=== PATIENT | female | born 1950 | race Caucasian/White ===

== ENCOUNTER 2019-01-23 11:06 | Inpatient (IN) | payer MEDICARE, BC ==
[2019-01-23 12:23] LABS: #Monocytes 0.3 thou/uL (0.11-0.59); %Basophils 0.8 % (0.0-1.0); %Eosinophils 0.3 % (0.0-10.0); %Lymphocytes 23.4 % (21.0-51.0); %Monocytes 7.5 % (0.0-10.0); %Neutrophils 67.9 % (42.0-75.0); Hemoglobin 12.9 g/dL (12.0-16.0); Mean Corpuscular HGB CONC 33.7 g/dL (32.0-36.0); Mean Corpuscular Hemoglobin 29.9 pg (27.0-31.0); Mean Corpuscular Volume 88.8 fL (78.0-98.0); Mean Platelet Volume 6.1 fL (7.4-10.4); Platelet Count 270 thou/uL (130-400); RBC Distribution Width 11.7 % (11.5-14.5); White Blood Cell (WBC) Count 4.4 thou/uL (4.8-10.8)
[2019-01-23 12:44] LABS: ALT (SGPT) Less than 6 U/L (8-55); AST (SGOT) 12 U/L (5-34); Albumin 4.4 g/dL (3.4-4.8); Alkaline Phosphatase 47 U/L (40-150); Anion Gap 12 mmol/L (10-20); BUN (Urea Nitrogen) 6 mg/dL (9.8-20.1); Bilirubin, Total 1.1 mg/dL (0.2-1.2); Calc. Creatinine Clearance 0 mL/min (70-130); Calcium 9.4 mg/dL (7.8-10.44); Carbon Dioxide 31 mmol/L (23-31); Chloride 103 mmol/L (98-107); Estimated GFR-MDRD 81; Globulin 2.2 g/dL (2.4-3.5); Glucose 108 mg/dL (80-115); Lipase 12 U/L (8-78); Protein, Total 6.6 g/dL (6.0-8.3); Sodium 144 mmol/L (136-145)
[2019-01-23 12:47] LABS: Potassium 2.3 mmol/L (3.5-5.1)
[2019-01-23] MEDS ORDERED: Potassium Chloride 20 MEQ TAB ONE (13:06)
[2019-01-23 13:32] LABS: Bilirubin Negative (Negative); Blood, Urine Negative (Negative); Clarity Slightly Cloudy (Clear); Glucose, Urine (Dipstick) Negative (Negative); Leukocyte Small (Negative); Nitrite Negative (Negative); Protein, Urine (Dipstick) Negative (Neg-Trace); Urobilinogen 0.2 mg/dL (0.2-1.0)
[2019-01-23 13:33] LABS: RBC/HPF 0-3 HPF (0-3); Squamous Epithelial 0-3 HPF (0-3); WBC/HPF 0-3 HPF (0-3)
[2019-01-23 13:34] LABS: Bacteria/HPF 1+ HPF (None Seen)
--- NOTE | 2019-01-23 14:08 | CT ---
ABDOMEN CT WITH CONTRAST PELVIC CT WITH CONTRAST: Date: 01/23/19 HISTORY: Abdominal pain. 3 weeks of diarrhea. Parkinson's disease. COMPARISON: 11/25/15. FINDINGS: ABDOMEN CT: The previously noted nodularity in the left and right lung base is less evident. There are linear opa cities in both lung bases suggesting subsegmental atelectasis or scar formation. Heart size is within normal limits. No significant pericardial fluid. Visualized aorta has a normal c aliber. Patent portal vein. Sludge or small stones in the gallbladder fundus. No CT evidence of cholecystitis. Liver, spleen, cordero creas, and adrenal glands have appropriate attenuation. Redemonstration of a 1.0 cm hypodensity in th e spleen with a central enhancing focus likely representing a small hemangioma. No gastrohepatic, retrocrural, or periportal lymphadenopathy. No mesenteric mass, lymphadenopathy, free air, or free fluid. Symmetric enhancement of the kidneys. Bilaterally, no obstructive uropathy. Subcentimeter hypodensity in the left renal cortex, unchanged from the previous examination, may represent a small cyst. Bilat erally, no obstructive uropathy. Limited evaluation of the alimentary canal due to lack of oral contrast. Multiple fluid-filled small bowel loops are identified with thickened mucosa. Enteritis must be considered. The proximal and mid small bowel loops are somewhat prominent. Distal small bowel loops are decompressed. There is fecaliz ation of distal small bowel loops, nonspecific. Ileocecal junction is unremarkable. Fluid attenuation is noted in the visualized colon. Appendix is difficult to appreciate. There is mucosal thickening i nvolving the sigmoid colon and rectum. CT PELVIS: Distended urinary bladder. No pelvic mass, lymphadenopathy, free air, or free fluid. No lytic or blastic lesions in the osseous structures. IMPRESSION: 1. Fluid attenuation with mucosal prominence involving multiple proximal and mid small bowel loops. Correlate for enteritis. There is also fluid attenuation in the right hemicolon, along with mucosal t hickening involving the sigmoid colon and rectum. Correlate for colitis/proctitis. 2. CT evidence of sludge and small stones in the gallbladder. No evidence of cholecystitis. 3. Distended urinary bladder. Encourage spontaneous voiding. POS: [facility]
[2019-01-23] MEDS ORDERED: Ondansetron ODT 4 MG TAB SL PRN (16:23)
[2019-01-23] MEDS ORDERED: Ondansetron PF 4 MG/2 ML Vial IVP PRN ×2 (16:23→17:33)
[2019-01-23 17:08] VITALS: BMI 26.2
[2019-01-23] MEDS ORDERED: Acetaminophen 650 MG Suppository PR PRN (17:33)
[2019-01-23] MEDS ORDERED: Senokot S 8.6-50 MG TAB PO PRN (17:33)
[2019-01-23] MEDS ORDERED: Acetaminophen 325 MG TAB PO PRN (17:33)
[2019-01-23] MEDS ORDERED: Ondansetron ODT 4 MG TAB PO PRN (17:33)
[2019-01-23] MEDS ORDERED: Guaifenesin DM 100-10/5 ML UDCUP PO PRN (17:45)
[2019-01-23] MEDS: Azelastine 137 MCG/Spray 30 ML NS SCH (21:05)
[2019-01-23] MEDS: Famotidine 20 MG TAB PO SCH (21:06)
[2019-01-23 22:32] LABS: Anion Gap 10 mmol/L (10-20); BUN (Urea Nitrogen) 7 mg/dL (9.8-20.1); Calc. Creatinine Clearance 70 mL/min (70-130); Calcium 9.1 mg/dL (7.8-10.44); Carbon Dioxide 31 mmol/L (23-31); Chloride 104 mmol/L (98-107); Estimated GFR-MDRD 74; Glucose 147 mg/dL (80-115); Sodium 142 mmol/L (136-145)
[2019-01-23 22:34] LABS: Potassium 2.7 mmol/L (3.5-5.1)
[2019-01-23] MEDS ORDERED: Potassium Chloride 20 MEQ TAB PO SCH (23:30)
--- NOTE | 2019-01-24 01:26 | CON ---
DATE OF CONSULTATION: REASON FOR CONSULTATION: Diarrhea. HISTORY OF PRESENT ILLNESS: Ms. Rice states she was sent to the emergency room by her primary physician, Dr. Pinto as she had hypokalemia and she has been having diarrhea for 3 weeks, which they have not been able to elucidate a cause. Reportedly, she was having normal bowel movements before that, has not had any issues with diarrhea typically, but about 3 weeks ago, she had abrupt onset of diarrhea, which she describes as being watery and up to 7-10 times per day, predominantly in the evening. It does not seem to be related to eating. There has been no antecedent antibiotics. She did start amantadine for about 3 days before that for her Parkinson's and she stopped her Rytary, but then restarted it and then went back off the amantadine. The diarrhea did not get better. She has tried Imodium and Pepto-Bismol at home. She had stool studies done for routine stool culture, it showed many normal konstantin with no Salmonella, Shigella, or E coli. She had a positive lactoferrin, a negative Campylobacter, and a negative shiga toxin. She did have positive lactoferrin and negative C difficile. She denies any recent sick contacts. She denies any travel. She denies having any new pets ill pets at home. The patient reports that she has gotten pretty weak and she was getting nauseated and was not really able to eat or drink. She denies any overt abdominal pain or cramping. She denies any blood in the stool or tenesmus. REVIEW OF SYSTEMS: CONSTITUTIONAL: Fatigue. No fever. Positive weakness. No chills. No rashes, myalgias, arthralgias, hematemesis, melena, or hematochezia. No cough or shortness of breath. CARDIOVASCULAR: Negative. RESPIRATORY: Negative. : Negative for dysuria, frequency, or urgency. MUSCULOSKELETAL: Negative for muscle spasms. NEUROLOGIC: Negative for headaches or seizures. Positive for Parkinson's. PAST MEDICAL HISTORY: Parkinson disease. PAST SURGICAL HISTORY: Hernia repair, EGD and colonoscopy by Dr. Chacorta Hodgson about 4 years ago which she reports were normal. SOCIAL HISTORY: Negative for alcohol, drugs, tobacco. ALLERGIES: SULFA. MEDICATIONS: At home; 1. Amantadine, she is off this now. 2. Carbidopa/levodopa. 3. Systane. 4. Metoprolol. 5. Clonazepam. 6. Estrace. 7. Sertraline. Present medications here; 1. Tylenol. 2. Azelastine. 3. Lovenox. 4. Pepcid. 5. Glucophage 500 b.i.d. 6. Lopressor. 7. Zofran. 8. Crestor. 9. Senokot p.r.n. 10. Sertraline. PHYSICAL EXAMINATION: GENERAL: The patient is resting comfortably in bed. She is alert and oriented to person, place, and time. VITAL SIGNS: Temperature is 98, pulse 83, blood pressure 121/98. LUNGS: Clear. ABDOMEN: Soft and nontender. There is no rebound or guarding. There is no palpable hepatosplenomegaly. There is no borborygmi or increased bowel sounds. EXTREMITIES: Reveal no clubbing, cyanosis, or edema. SKIN: There is no skin tenting. There is no evidence of rashes. HEENT: Oropharynx is without lesions. LABORATORY STUDIES: White count 4.4, hemoglobin 12.9, platelet count 270. BUN and creatinine 6 and 0.7. Liver function tests are normal. Albumin is 4.4. TSH was normal on 12/26. B12 is 329. Vitamin D is 26. Lipase 19. ASSESSMENT: Three weeks of diarrhea with positive fecal lactoferrin, negative cultures, negative clostridium difficile. With the length of this, this is infection, it is going to be parasitic. Giardia will be a concern as would cyclosporine where there has been several outbreaks of this in [place] in the past year or so, these need to be checked for. If they are persistently negative and diarrhea does not go away, we can consider colonoscopy for microscopic colitis. In the meantime, I would put her on a low-fat lactose-free diet and monitor her stools while replacing her potassium. Job ID: [id number]
[2019-01-24 04:58] LABS: #Basophils 0.1 thou/uL (0.0-0.2); #Eosinphils 0.1 thou/uL (0.0-0.7); #Lymphocytes 1.8 thou/uL (1.20-3.40); #Monocytes 0.5 thou/uL (0.11-0.59); #Neutrophils 2.9 thou/uL (1.40-6.50); %Eosinophils 1.2 % (0.0-10.0); %Lymphocytes 33.3 % (21.0-51.0); %Monocytes 9.1 % (0.0-10.0); %Neutrophils 55.4 % (42.0-75.0); Hemoglobin 11.5 g/dL (12.0-16.0); Mean Corpuscular HGB CONC 32.8 g/dL (32.0-36.0); Mean Corpuscular Hemoglobin 30.2 pg (27.0-31.0); Mean Corpuscular Volume 92.2 fL (78.0-98.0); Mean Platelet Volume 6.3 fL (7.4-10.4); Platelet Count 268 thou/uL (130-400); RBC Distribution Width 11.7 % (11.5-14.5); Red Blood Cell (RBC) Count 3.82 mill/uL (4.20-5.40); White Blood Cell (WBC) Count 5.3 thou/uL (4.8-10.8)
[2019-01-24 05:15] LABS: Anion Gap 10 mmol/L (10-20); BUN (Urea Nitrogen) 6 mg/dL (9.8-20.1); Calc. Creatinine Clearance 84 mL/min (70-130); Carbon Dioxide 27 mmol/L (23-31); Chloride 107 mmol/L (98-107); Estimated GFR-MDRD Greater than 90; Glucose 103 mg/dL (80-115); Sodium 141 mmol/L (136-145)
[2019-01-24] MEDS ORDERED: metFORMIN 500 MG TAB PO SCH (08:00)
[2019-01-24] MEDS: Famotidine 20 MG TAB PO SCH ×2 (08:06→20:51)
[2019-01-24] MEDS: Rosuvastatin 10 MG TAB PO SCH (08:06)
[2019-01-24] MEDS: Metoprolol Tartrate 25 MG TAB PO SCH (08:06)
[2019-01-24] MEDS: Enoxaparin Sodium 40 MG/0.4 ML SYRINGE SC SCH (08:06)
[2019-01-24] MEDS: Azelastine 137 MCG/Spray 30 ML NS SCH ×2 (08:10→20:52)
[2019-01-24] MEDS ORDERED: CARBIDOPA PO SCH (09:00)
[2019-01-24] MEDS ORDERED: LEVODOPA PO SCH (09:00)
[2019-01-24] MEDS: Potassium Chloride 20 MEQ TAB PO SCH ×3 (09:12→20:48)
[2019-01-24] MEDS: Polyethylene Glycol OPTH DROP 15 ML BOT EA EYE SCH (09:12)
[2019-01-24] MEDS: CARBIDOPA PO SCH ×2 (12:01→17:00)
[2019-01-24] MEDS: LEVODOPA PO SCH ×2 (12:01→17:00)
--- NOTE | 2019-01-24 12:36 | PDOC.PN ---
- Subjective Encounter Start Date: 01/24/19 Encounter Start Time: 09:45 Subjective: still has loose BM's around 5 from am, no blood/mucus in it -: No nausea/vomiting -: no abd pain - Objective Resuscitation Status - Order Detail: 01/23/19 17:18 Resuscitation Status Routine Resuscitation Status: FULL: Full Resuscitation Discussed with: Patient LEROY Reviewed: Yes Vital Signs & Weight: Vital Signs (12 hours) Temp Pulse Pulse Pulse Resp BP BP 01/24/19 09:57 69 69 101/58 L 111/56 L 01/24/19 09:54 69 69 101/58 L 111/56 L 01/24/19 08:00 97.7 F 85 17 01/24/19 03:25 97.7 F 66 20 BP Pulse Ox 01/24/19 09:57 01/24/19 09:54 01/24/19 08:00 103/59 L 94 L 01/24/19 03:25 93 L Weight Admit Weight 143 lb Weight 143 lb I&O: 01/23/19 01/24/19 01/25/19 06:59 06:59 06:59 Intake Total 440 Balance 440 Result Diagrams: 01/24/19 04:43 01/24/19 04:43 Phys Exam - Physical Examination HEENT: PERRLA dry mucosa Neck: no JVD, supple Respiratory: no wheezing, no rales Cardiovascular: RRR, no significant murmur Gastrointestinal: soft, non-tender, no distention, positive bowel sounds Musculoskeletal: no edema, pulses present Neurological: non-focal, moves all 4 limbs Psychiatric: normal affect, A&O x 3 Dx/Plan (1) Gastroenteritis Code(s): K52.9 - NONINFECTIVE GASTROENTERITIS AND COLITIS, UNSPECIFIED Status : Acute (2) Hypokalemia Code(s): E87.6 - HYPOKALEMIA Status: Acute (3) Moderate dehydration Code(s): E86.0 - DEHYDRATION Status: Acute (4) HTN (hypertension) Code(s): I10 - ESSENTIAL (PRIMARY) HYPERTENSION Status: Chronic Qualifiers: Hypertension type: essential hypertension Qualified Code(s): I10 - Essential (primary) hypertension (5) Dyslipidemia Code(s): E78.5 - HYPERLIPIDEMIA, UNSPECIFIED Status: Chronic (6) Parkinson disease Code(s): G20 - PARKINSON'S DISEASE Status: Chronic (7) Mood disorder Code(s): F39 - UNSPECIFIED MOOD [AFFECTIVE] DISORDER Status: Chronic - Plan stool ova/cyst is -ve for giardia and cryptosporidium -: replace electrolytes, gentle iv fluids -: is tolerating lactose free oral diet -: continue levodopa, crestor, zoloft and lopressor -: await GI opinion * . Review of Systems - Medications/Allergies Allergies/Adverse Reactions: Allergies Allergy/AdvReac Type Severity Reaction Status Date / Time Sulfa (Sulfonamide Allergy Intermediate BRUISING Verified 01/23/19 16:46 Antibiotics) ON ARMS Medications: Current Medications Acetaminophen (Tylenol) 650 mg PO Q4H PRN PRN Reason: Headache/Fever/Mild Pain (1-3) Acetaminophen (Tylenol) 650 mg PA Q4H PRN PRN Reason: Headache/Fever/Mild Pain (1-3) Azelastine HCl (Azelastine) 0 ml NS BID [facility] Last Admin: 01/24/19 08:10 Dose: 1 spr Enoxaparin Sodium (Lovenox) 40 mg SC 0900 [facility] Last Admin: 01/24/19 08:06 Dose: 40 mg Famotidine (Pepcid) 20 mg PO BID [facility] Last Admin: 01/24/19 08:06 Dose: 20 mg Guaifenesin/Dextromethorphan (Robitussin Dm) 15 ml PO Q4H PRN PRN Reason: Cough Hydralazine HCl (Apresoline) 10 mg SLOW IVP Q6H PRN PRN Reason: HIGH BLOOD PRESSURE Metoprolol Tartrate (Lopressor) 50 mg PO DAILY [facility] Last Admin: 01/24/19 08:06 Dose: 50 mg Ondansetron HCl (Zofran Odt) 4 mg PO Q6H PRN PRN Reason: Nausea/Vomiting Ondansetron HCl (Zofran) 4 mg IVP Q6H PRN PRN Reason: Nausea/Vomiting Carbidopa/Levodopa [ Rytary Er] 36.25 Mg/145 Mg 0 each PO 0700,1130,1630 [facility] Last Admin: 01/24/19 12:01 Dose: 1 each Potassium Chloride (K-Dur) 40 meq PO Q6H [facility] Stop: 01/25/19 02:01 Last Admin: 01/24/19 09:12 Dose: 40 meq Propylene Glycol (Systane Opth Drop 15ml Bot) 1 drop EA EYE DAILY [facility] Last Admin: 01/24/19 09:12 Dose: 1 drop Rosuvastatin Calcium (Crestor) 10 mg PO DAILY [facility] Last Admin: 01/24/19 08:06 Dose: 10 mg Sertraline HCl (Zoloft) 50 mg PO DAILY [facility] Last Admin: 01/24/19 08:07 Dose: 50 mg Sodium Chloride (Flush - Normal Saline) 10 ml IVF Q12HR [facility] Last Admin: 01/24/19 08:10 Dose: 10 ml Sodium Chloride (Flush - Normal Saline) 10 ml IVF PRN PRN PRN Reason: Saline Flush
[2019-01-24] MEDS: Lactated Ringer's 1,000 ML IV SCH (13:45)
[2019-01-24] MEDS ORDERED: Magnesium Citrate 300 ML BOT PO SCH (18:00)
--- NOTE | 2019-01-24 18:40 | PRG ---
DATE OF SERVICE: 01/24/2019 SUBJECTIVE: Ms. Rice states she has had 8 bowel movements today, does not really relate to meals. It is watery, poorly formed. Stool rapid parasite screen was negative. C diff, Campylobacter, shiga toxins, all negative on 01/17. At that time, she had positive lactoferrin. Cultures were negative. Potassium is 3, up from 2.7. Electrolytes otherwise normal. OBJECTIVE: VITAL SIGNS: She has been afebrile with temperature 97, pulse 70, blood pressure 120/78. ABDOMEN: Soft and nontender. LUNGS: Clear. HEART: Regular rate and rhythm without clicks, rubs, or murmurs. SKIN: Without rash or lesions. ASSESSMENT: Diarrhea of unclear etiology times today, no blood. CAT scan showed no evidence of adenopathy, but did show a fluid attenuation with "mucosal prominence" in some loops of small bowel, right hemicolon, with some questionable thickening in the sigmoid colon and rectum. The patient, however, has not had any acute colitis symptoms with no bleeding or tenesmus. RECOMMENDATIONS: 1. Await Cyclospora. 2. Order stool for fecal fat. 3. We will embark on colonoscopy and biopsies to rule out macroscopic colitis. Imodium until our biopsies are back and stool studies are complete. Job ID: [id number]
[2019-01-24] MEDS: hydrALAZINE 20 MG/ML VIAL SLOW IVP PRN (19:00)
[2019-01-25] MEDS: Potassium Chloride 20 MEQ TAB PO SCH (01:06)
[2019-01-25] MEDS: Lactated Ringer's 1,000 ML IV SCH (04:34)
[2019-01-25 05:29] LABS: Anion Gap 12 mmol/L (10-20); BUN (Urea Nitrogen) 6 mg/dL (9.8-20.1); Calc. Creatinine Clearance 81 mL/min (70-130); Calcium 9.5 mg/dL (7.8-10.44); Carbon Dioxide 29 mmol/L (23-31); Chloride 105 mmol/L (98-107); Estimated GFR-MDRD 89; Glucose 103 mg/dL (80-115); Magnesium 2.4 mg/dL (1.6-2.6); Potassium 3.8 mmol/L (3.5-5.1); Sodium 142 mmol/L (136-145)
[2019-01-25] MEDS: CARBIDOPA PO SCH ×3 (06:36→15:12)
[2019-01-25] MEDS: LEVODOPA PO SCH ×3 (06:36→15:12)
[2019-01-25] MEDS: Metoprolol Tartrate 25 MG TAB PO SCH (06:36)
[2019-01-25] MEDS: Azelastine 137 MCG/Spray 30 ML NS SCH ×2 (09:41→20:55)
[2019-01-25] MEDS: Famotidine 20 MG TAB PO SCH ×2 (09:41→20:55)
[2019-01-25] MEDS: Rosuvastatin 10 MG TAB PO SCH (09:41)
[2019-01-25] MEDS: Polyethylene Glycol OPTH DROP 15 ML BOT EA EYE SCH (09:42)
[2019-01-25] MEDS: Enoxaparin Sodium 40 MG/0.4 ML SYRINGE SC SCH (09:44)
[2019-01-25] MEDS ORDERED: PROPOFOL 200 MG/20 ML VIAL ONE (13:08)
[2019-01-25] MEDS ORDERED: Lidocaine 1% PF 5 ML VIAL ONE (13:08)
[2019-01-25] MEDS: hydrALAZINE 20 MG/ML VIAL SLOW IVP PRN (13:16)
--- NOTE | 2019-01-25 14:04 | OP ---
DATE OF PROCEDURE: 01/25/2019 PROCEDURE PERFORMED: Colonoscopy with biopsy. INDICATION FOR PROCEDURE: Chronic diarrhea and abdominal pain. DESCRIPTION OF PROCEDURE: After the risks and benefits of the procedure were explained to the patient including risks of bleeding, infection, perforation, reactions to anesthesia, aspiration and/or pain, informed consent was obtained. The patient was then taken to the endoscopy suite, where deep sedation was administered via propofol and anesthesia support. Once adequate sedation was achieved, a digital rectal examination was performed followed by introduction of the standard colonoscope, which was then advanced to the cecum with some difficulty due to redundancy of the colon as well as tortuosity of the colon that required manual abdominal pressure to facilitate passage of the scope. The quality of the prep was fair to good with a mild amount of retained semi-solid stool seen throughout the entire colon. The patient tolerated the procedure well with no immediate perioperative complications. Upon conclusion of the procedure, all equipment was removed from the patient and she was transferred to PACU in satisfactory condition. FINDINGS: Digital rectal exam: Small external hemorrhoids were seen on external examination. Colon findings: Mild mucosal erythema was seen throughout the entire colon with mild granular appearance to the tissue as well as mild loss of vascularity. This was most especially present within the left colon in the rectum. Multiple biopsies were taken from the left colon, transverse colon, and right colon for further evaluation. Otherwise, there was no evidence of erosions, ulcerations, mass lesions, or active/recent bleeding. On rectal retroflexion, small internal hemorrhoids and hypertrophied anal papillae were seen. IMPRESSION: 1. Pancolonic mucosal erythema concerning for infection versus inflammatory bowel disease, status post biopsies. 2. Small internal and external hemorrhoids. 3. Hypertrophied anal papillae. RECOMMENDATIONS: 1. We will follow up on the biopsy results with further management indicated by the pathology report. 2. We would continue to follow up on infectious workup given the higher likelihood of an infectious etiology. 3. We will consider placing the patient on 5-ASA compound in light of possible ulcerative colitis. 4. Continue to monitor the patient clinically for resolution of her diarrhea. Can consider use of loperamide as an antimotility agent. 5. We would recommend a higher fiber diet as part of the stool bulking technique. 6. We will continue to follow. 7. Please call with any questions. Job ID: [id number]
[2019-01-25] MEDS: metroNIDAZOLE 250 MG TAB PO SCH (20:55)
[2019-01-26] MEDS ORDERED: LEVODOPA PO SCH (00:45)
[2019-01-26] MEDS ORDERED: CARBIDOPA PO SCH (00:45)
[2019-01-26] MEDS: Lactated Ringer's 1,000 ML IV SCH ×2 (04:49→16:28)
[2019-01-26] MEDS: LEVODOPA PO SCH ×3 (07:13→16:29)
[2019-01-26] MEDS: CARBIDOPA PO SCH ×3 (07:13→16:29)
[2019-01-26] MEDS: Mesalamine DR 400 mg Capsule PO SCH ×3 (07:52→20:34)
[2019-01-26] MEDS: Rosuvastatin 10 MG TAB PO SCH (07:53)
[2019-01-26] MEDS: Metoprolol Tartrate 25 MG TAB PO SCH (07:54)
[2019-01-26] MEDS: Famotidine 20 MG TAB PO SCH ×2 (07:54→20:34)
[2019-01-26] MEDS: metroNIDAZOLE 250 MG TAB PO SCH ×3 (07:54→20:34)
[2019-01-26] MEDS: Polyethylene Glycol OPTH DROP 15 ML BOT EA EYE SCH (07:57)
[2019-01-26] MEDS: Enoxaparin Sodium 40 MG/0.4 ML SYRINGE SC SCH (07:57)
[2019-01-26] MEDS: hydrALAZINE 20 MG/ML VIAL SLOW IVP PRN (07:58)
[2019-01-26] MEDS: Azelastine 137 MCG/Spray 30 ML NS SCH ×2 (07:59→20:33)
--- NOTE | 2019-01-26 15:45 | PDOC.PN ---
- Subjective Encounter Start Date: 01/26/19 Encounter Start Time: 15:43 Subjective: Feeling better. Stool frequency has improved a lot. -: No fever - Objective Resuscitation Status - Order Detail: 01/23/19 17:18 Resuscitation Status Routine Resuscitation Status: FULL: Full Resuscitation Discussed with: Patient Vital Signs & Weight: Vital Signs (12 hours) Temp Pulse Resp BP BP BP Pulse Ox 01/26/19 12:29 121/57 L 01/26/19 11:52 71 100/50 L 01/26/19 11:40 97.6 F 72 18 94/50 L 95 01/26/19 10:41 97/44 L 01/26/19 10:03 93/48 L 01/26/19 09:53 93/44 L 01/26/19 09:40 85/39 L 01/26/19 09:31 64 84/41 L 01/26/19 09:29 64 81/39 L 01/26/19 08:58 61 84/41 L 01/26/19 07:58 80 184/74 H 01/26/19 07:41 97.4 F L 80 18 184/74 H 94 L 01/26/19 04:00 98.9 F 78 16 145/66 H 96 Weight Admit Weight 143 lb Weight 143 lb I&O: 01/25/19 01/26/19 01/27/19 06:59 06:59 06:59 Intake Total 490 1989 1044 Output Total 308 101 Balance 182 1888 1044 Result Diagrams: 01/24/19 04:43 01/25/19 04:50 Phys Exam - Physical Examination Constitutional: NAD HEENT: moist MMs Neck: no JVD, supple Respiratory: no wheezing, no rhonchi Cardiovascular: RRR soft systolic murmur noted Gastrointestinal: soft, non-tender, no distention, positive bowel sounds Musculoskeletal: no edema, pulses present Neurological: non-focal, moves all 4 limbs Psychiatric: normal affect, A&O x 3 Dx/Plan (1) Chronic diarrhea Code(s): K52.9 - NONINFECTIVE GASTROENTERITIS AND COLITIS, UNSPECIFIED Status : Acute (2) Pancolitis Code(s): K51.00 - ULCERATIVE (CHRONIC) PANCOLITIS WITHOUT COMPLICATIONS Status : Acute (3) Hypokalemia Code(s): E87.6 - HYPOKALEMIA Status: Acute (4) Moderate dehydration Code(s): E86.0 - DEHYDRATION Status: Acute (5) HTN (hypertension) Code(s): I10 - ESSENTIAL (PRIMARY) HYPERTENSION Status: Chronic Qualifiers: Hypertension type: essential hypertension Qualified Code(s): I10 - Essential (primary) hypertension (6) Parkinson disease Code(s): G20 - PARKINSON'S DISEASE Status: Chronic - Plan DC IVF. -: Diet as tolerated. -: Monitor renal function and electrolytes -: Awaiting colon biopsy result. -: Continue other treartments * .
--- NOTE | 2019-01-26 17:38 | PRG ---
DATE OF SERVICE: 01/26/2019 SUBJECTIVE: I am meeting Ms. Rice for the first time today, covering for Dr. Bledsoe this weekend. She tells me that she is not having any abdominal pain, nausea, or vomiting. She is tolerating her diet. However, she continues to have diarrhea. She has had 3 very loose bowel movements so far today, may be slowing down a little bit from before. Biopsy results are still pending. Stool Cyclospora, Entamoeba histolytica, and fecal fat and norovirus are all still pending as well. OBJECTIVE: VITAL SIGNS: Temperature 98.4, pulse 75, blood pressure 184/74, and 97% oxygen saturation on room air. GENERAL: No acute distress. HEART: Regular rate and rhythm. LUNGS: Clear to auscultation bilaterally. ABDOMEN: Soft. Bowel sounds present. Nontender to palpation. EXTREMITIES: No peripheral edema. LABORATORY STUDIES: Hemoglobin 11.5, WBC 5.3, platelets 268. Sodium 142, potassium 3.8, BUN 6, creatinine 0.66. Urinalysis negative. Stool rapid parasite screen was negative. Further stool studies as listed above still pending. Colon biopsy results also still pending. ASSESSMENT AND PLAN: Diffuse colitis, infectious versus inflammatory, with biopsies still pending. I agree with the current plan. She is continuing on the IV antibiotics for now while we await biopsies. She is also now receiving Delzicol 800 mg t.i.d. Diarrhea may be marginally slowing down today. Continue to await results of biopsies and send out stool studies. Continue current supportive care. Job ID: [id number]
[2019-01-27 04:01] LABS: Albumin 3.4 g/dL (3.4-4.8); Anion Gap 8 mmol/L (10-20); BUN (Urea Nitrogen) 10 mg/dL (9.8-20.1); BUN/Creatinine Ratio 13.51; Calc. Creatinine Clearance 72 mL/min (70-130); Carbon Dioxide 26 mmol/L (23-31); Chloride 108 mmol/L (98-107); Estimated GFR-MDRD 78; Glucose 105 mg/dL (80-115); Phosphorus 4.3 mg/dL (2.3-4.7); Potassium 3.4 mmol/L (3.5-5.1); Sodium 139 mmol/L (136-145)
[2019-01-27] MEDS: CARBIDOPA PO SCH ×3 (06:46→16:33)
[2019-01-27] MEDS: LEVODOPA PO SCH ×3 (06:46→16:33)
[2019-01-27] MEDS: Rosuvastatin 10 MG TAB PO SCH (08:20)
[2019-01-27] MEDS: Mesalamine DR 400 mg Capsule PO SCH ×3 (08:20→20:00)
[2019-01-27] MEDS: Famotidine 20 MG TAB PO SCH ×2 (08:20→19:59)
[2019-01-27] MEDS: Enoxaparin Sodium 40 MG/0.4 ML SYRINGE SC SCH (08:21)
[2019-01-27] MEDS: metroNIDAZOLE 250 MG TAB PO SCH ×3 (08:22→19:59)
[2019-01-27] MEDS: Metoprolol Tartrate 25 MG TAB PO SCH ×3 (08:22→19:59)
[2019-01-27] MEDS: Azelastine 137 MCG/Spray 30 ML NS SCH ×2 (08:23→20:10)
[2019-01-27] MEDS: Polyethylene Glycol OPTH DROP 15 ML BOT EA EYE SCH (08:24)
--- NOTE | 2019-01-27 08:27 | PDOC.PN ---
- Subjective Encounter Start Date: 01/27/19 Encounter Start Time: 08:26 -: non-verbal Subjective: No new problem -: Still having loose stools though frequency si better. -: Had 3 BM yesterday. Remained afebrile. - Objective Resuscitation Status - Order Detail: 01/23/19 17:18 Resuscitation Status Routine Resuscitation Status: FULL: Full Resuscitation Discussed with: Patient Vital Signs & Weight: Vital Signs (12 hours) Temp Pulse Resp BP Pulse Ox 01/27/19 04:05 75 16 143/65 H 01/27/19 00:41 80 16 147/65 H 01/27/19 00:15 82 20 175/74 H 01/26/19 20:30 98.2 F 82 18 108/46 L 94 L Weight Admit Weight 143 lb Weight 143 lb I&O: 01/26/19 01/27/19 01/28/19 06:59 06:59 06:59 Intake Total 1988 2063 Output Total 101 Balance 1887 2063 Result Diagrams: 01/24/19 04:43 01/27/19 03:32 Phys Exam - Physical Examination Constitutional: NAD HEENT: moist MMs Neck: no JVD, supple Respiratory: no wheezing, no rales, no rhonchi, clear to auscultation bilateral Cardiovascular: RRR, no significant murmur Gastrointestinal: soft, non-tender, no distention, positive bowel sounds Musculoskeletal: no edema, pulses present Neurological: non-focal, moves all 4 limbs Psychiatric: A&O x 3 Dx/Plan (1) Chronic diarrhea Code(s): K52.9 - NONINFECTIVE GASTROENTERITIS AND COLITIS, UNSPECIFIED Status : Acute (2) Pancolitis Code(s): K51.00 - ULCERATIVE (CHRONIC) PANCOLITIS WITHOUT COMPLICATIONS Status : Acute (3) Hypokalemia Code(s): E87.6 - HYPOKALEMIA Status: Acute (4) Moderate dehydration Code(s): E86.0 - DEHYDRATION Status: Acute (5) HTN (hypertension) Code(s): I10 - ESSENTIAL (PRIMARY) HYPERTENSION Status: Chronic Qualifiers: Hypertension type: essential hypertension Qualified Code(s): I10 - Essential (primary) hypertension (6) Parkinson disease Code(s): G20 - PARKINSON'S DISEASE Status: Chronic - Plan Replete serum potassium with potassium chloride, -: Change metoprolol to 25 bid instead of 50 daily. -: Continue IV antibiotics -: Awaiting stool tests and colon biopsies. -: Gi following. * .
[2019-01-27] MEDS: Potassium Chloride 20 MEQ TAB PO SCH ×2 (08:38→14:57)
--- NOTE | 2019-01-27 10:52 | PRG ---
DATE OF SERVICE: 01/27/2019 SUBJECTIVE: Ms. Rice is feeling okay today. No abdominal pain. Appetite is good. She did not have any nocturnal bowel movements overnight, but she has had one very loose bowel movement so far today. She has no other complaints/ OBJECTIVE: VITAL SIGNS: Temperature 97.5, pulse 76, blood pressure 164/72, and 93% oxygen saturation on room air. GENERAL: In no acute distress. HEART: Regular rate and rhythm. LUNGS: Clear to auscultation bilaterally. ABDOMEN: Soft and nontender to palpation. EXTREMITIES: No peripheral edema. LABORATORY STUDIES: Sodium 139, potassium 3.4, BUN 10, and creatinine 0.74. Further stool studies including Cyclospora smear, Entamoeba histolytica, fecal fat, and norovirus all still pending. Colon biopsy results also pending. ASSESSMENT AND PLAN: Diffuse colitis, infectious versus inflammatory. Biopsies still pending. Further stool studies still pending. Continue with Delzicol 800 mg t.i.d. and the IV antibiotics for now. Stool frequency is declining somewhat. Continue current supportive care. Job ID: [id number]
[2019-01-28 04:24] LABS: #Basophils 0.1 thou/uL (0.0-0.2); #Eosinphils 0.1 thou/uL (0.0-0.7); #Lymphocytes 1.6 thou/uL (1.20-3.40); #Monocytes 0.5 thou/uL (0.11-0.59); #Neutrophils 2.6 thou/uL (1.40-6.50); %Basophils 1.1 % (0.0-1.0); %Eosinophils 2.7 % (0.0-10.0); %Lymphocytes 33.2 % (21.0-51.0); %Monocytes 9.5 % (0.0-10.0); %Neutrophils 53.6 % (42.0-75.0); Mean Corpuscular Hemoglobin 30.5 pg (27.0-31.0); Mean Corpuscular Volume 92.2 fL (78.0-98.0); Mean Platelet Volume 6.3 fL (7.4-10.4); Platelet Count 245 thou/uL (130-400); RBC Distribution Width 11.7 % (11.5-14.5); Red Blood Cell (RBC) Count 3.95 mill/uL (4.20-5.40); White Blood Cell (WBC) Count 4.9 thou/uL (4.8-10.8)
[2019-01-28 04:38] LABS: Anion Gap 9 mmol/L (10-20); BUN (Urea Nitrogen) 11 mg/dL (9.8-20.1); Calc. Creatinine Clearance 73 mL/min (70-130); Calcium 9.3 mg/dL (7.8-10.44); Carbon Dioxide 26 mmol/L (23-31); Chloride 108 mmol/L (98-107); Estimated GFR-MDRD 79; Glucose 108 mg/dL (80-115); Magnesium 2.1 mg/dL (1.6-2.6); Potassium 4.1 mmol/L (3.5-5.1); Sodium 139 mmol/L (136-145)
[2019-01-28] MEDS: CARBIDOPA PO SCH ×3 (06:57→16:43)
[2019-01-28] MEDS: LEVODOPA PO SCH ×3 (06:57→16:43)
--- NOTE | 2019-01-28 07:08 | PDOC.PN ---
- Subjective Encounter Start Date: 01/28/19 Encounter Start Time: 07:06 Subjective: still having about 5 watery stools a day. relates recently was taken off -: clonazepam - Objective Resuscitation Status - Order Detail: 01/23/19 17:18 Resuscitation Status Routine Resuscitation Status: FULL: Full Resuscitation Discussed with: Nicolasa HARPER Reviewed: Yes Vital Signs & Weight: Vital Signs (12 hours) Temp Pulse Resp BP Pulse Ox 01/27/19 19:32 98.5 F 85 18 129/59 L 95 Weight Admit Weight 143 lb Weight 143 lb I&O: 01/27/19 01/28/19 01/29/19 06:59 06:59 06:59 Intake Total 2063 1699 Balance 2063 1699 Result Diagrams: 01/28/19 04:10 01/28/19 04:10 Phys Exam - Physical Examination Neck: no JVD Respiratory: clear to auscultation bilateral Cardiovascular: RRR, no significant murmur Gastrointestinal: soft, non-tender, no distention, positive bowel sounds Musculoskeletal: no edema Dx/Plan (1) Moderate dehydration Code(s): E86.0 - DEHYDRATION Status: Resolved (2) Pancolitis Code(s): K51.00 - ULCERATIVE (CHRONIC) PANCOLITIS WITHOUT COMPLICATIONS Status : Acute (3) Dyslipidemia Code(s): E78.5 - HYPERLIPIDEMIA, UNSPECIFIED Status: Chronic (4) HTN (hypertension) Code(s): I10 - ESSENTIAL (PRIMARY) HYPERTENSION Status: Chronic Qualifiers: Hypertension type: essential hypertension Qualified Code(s): I10 - Essential (primary) hypertension (5) Parkinson disease Code(s): G20 - PARKINSON'S DISEASE Status: Chronic - Plan cont antibx -: cont mesalmine -: cont statin, metoprolol -: await Bx results -: discuss with GI * .
[2019-01-28] MEDS: Mesalamine DR 400 mg Capsule PO SCH ×2 (08:16→15:12)
[2019-01-28] MEDS: Famotidine 20 MG TAB PO SCH ×2 (08:16→21:12)
[2019-01-28] MEDS: Enoxaparin Sodium 40 MG/0.4 ML SYRINGE SC SCH (08:16)
[2019-01-28] MEDS: Metoprolol Tartrate 25 MG TAB PO SCH ×2 (08:17→21:12)
[2019-01-28] MEDS: metroNIDAZOLE 250 MG TAB PO SCH ×2 (08:17→15:12)
[2019-01-28] MEDS: Rosuvastatin 10 MG TAB PO SCH (08:18)
[2019-01-28] MEDS: Azelastine 137 MCG/Spray 30 ML NS SCH ×2 (08:18→21:12)
[2019-01-28] MEDS: Polyethylene Glycol OPTH DROP 15 ML BOT EA EYE SCH (08:18)
[2019-01-28 16:10] LABS: Neutral Fats And/Or Soaps Normal (.)
[2019-01-28] MEDS ORDERED: Diphenoxylate HCl/Atropine Tablet PO PRN (18:44)
--- NOTE | 2019-01-28 19:26 | PRG ---
DATE OF SERVICE: 01/28/2019 SUBJECTIVE: Ms. Rice notes her stools are formed a little bit. This is a little bit loose. OBJECTIVE: VITAL SIGNS: She has had no fever or chills. Temperature is 98, pulse 80, blood pressure 146/65. On 01/26, she was started on some Asacol. The patient's antibiotics were started on the . Her abdomen is soft and nontender. She has no rebound or guarding. LABORATORY STUDIES: Normal CBCs. today. Pathology biopsied showed lymphocytic colitis. ASSESSMENT: Lymphocytic colitis. Etiology is unclear. She really is not on the typical medicines such as PPIs, NSAIDs, HMG-CoA reductase inhibitors or antidepressants. The role of her weaning off Klonopin recently is unclear as is the role of her short-term use of amantadine. RECOMMENDATIONS: 1. Stop antibiotics. 2. We will follow up stool for Cyclospora. 3. We can stop the 5-ASA medication as well and start Entocort 9 mg daily for 4 weeks, then tapered to 6 mg daily for 2 weeks and 3 mg daily for 2 weeks and discontinue it. She can follow up with me in the office in couple of weeks to see how she is doing. 4. Anticipate discharge home tomorrow. She can have some Lomotil to use p.r.n. as well. Job ID: [id number]
[2019-01-29] MEDS: LEVODOPA PO SCH ×2 (06:29→11:00)
[2019-01-29] MEDS: CARBIDOPA PO SCH ×2 (06:29→11:00)
[2019-01-29] MEDS: Famotidine 20 MG TAB PO SCH (09:22)
[2019-01-29] MEDS: Metoprolol Tartrate 25 MG TAB PO SCH (09:22)
[2019-01-29] MEDS: Rosuvastatin 10 MG TAB PO SCH (09:23)
[2019-01-29] MEDS: Enoxaparin Sodium 40 MG/0.4 ML SYRINGE SC SCH (09:23)
[2019-01-29] MEDS: Azelastine 137 MCG/Spray 30 ML NS SCH (09:23)
[2019-01-29] MEDS: Polyethylene Glycol OPTH DROP 15 ML BOT EA EYE SCH (09:26)
[2019-01-29 11:37] VITALS: BP 109/68; TEMP 98.5
--- NOTE | 2019-01-29 13:23 | DIS ---
DATE OF ADMISSION: 01/23/2019 DATE OF DISCHARGE: 01/29/2019 PRIMARY CARE PROVIDER: Marlene Pinto MD DISPOSITION: Discharged to home. FINAL DIAGNOSES: Pancolitis, diarrhea, Parkinson's disease, hypertension, and hypokalemia. DISCHARGE MEDICATIONS: Entocort EC 9 mg daily for 30 days to be followed with 6 mg daily for 2 weeks and then 3 mg daily for 2 weeks and discontinue. She is on Lomotil 1 tablet q.6 hours p.r.n. for diarrhea. Prescriptions for both of these have been written. She also takes Crestor 10 mg a day, Zoloft 50 mg a day, metoprolol 50 mg a day, and metformin 500 mg a day. ALLERGIES: TO SULFA. DIET: Heart healthy. CODE STATUS: Full. PENDING AT TIME OF DISCHARGE: Nothing. HOSPITAL COURSE: The patient was admitted to [facility]. She was admitted with diarrhea for 3 weeks. She also had hypokalemia. Multiple stools were done as an outpatient. No Salmonella, Shigella, E coli. She had a positive lactoferrin, negative Campylobacter, negative C difficile. Her admitting laboratory revealed a sodium 144, potassium 2.3, BUN is 6, and creatinine is 0.71. Liver function test unremarkable. At discharge, sodium 139, potassium 4.1, BUN 11, and creatinine 0.73. Stool fat was normal. CBC was normal except for a low white count of 4.5, followup 5.3, and 4.9, which are normal. She was seen in consultation by Dr. Bledsoe. On 01/25/2019, she underwent colonoscopy with biopsy by Dr. Bonilla Alvarez. The biopsy results from 3 different portions right and left in transfers. There was intraepithelial lymphocytosis with crypts and surface epithelium degeneration increased lamina propria lymphocytic infiltrate. No evidence of collagenous colitis. No dysplasia or malignancy. The patient is being discharged in record orally for her pancolitis. She is to be seen in 2 to [address] Bledsoe for followup. She is being continued on her selected home medicines. Job ID: [id number]
[2019-01-30 05:14] LABS: Norovirus GI Negative (Negative); Norovirus GII Negative (Negative)
== END 2019-01-29 14:08 | disposition home or self-care (01) | DRG 387 ==
LOC: SCSER 11:06 → 2NO 13:42 → ONC 01-24 16:05
PROVIDERS: ADMIT Internal Medicine; ATTEND Internal Medicine
PROC: 0DBG8ZX Excision of Left Large Intestine, Via Natural or Artificial Opening Endoscopic, Diagnostic (ICD-10-PCS; principal; 2019-01-25)
PROC: 0DBL8ZX Excision of Transverse Colon, Via Natural or Artificial Opening Endoscopic, Diagnostic (ICD-10-PCS; 2019-01-25)
PROC: 0DBF8ZX Excision of Right Large Intestine, Via Natural or Artificial Opening Endoscopic, Diagnostic (ICD-10-PCS; 2019-01-25)
DX: K51.00 Ulcerative (chronic) pancolitis without complications (principal); K52.832 Lymphocytic colitis; K52.9 Noninfective gastroenteritis and colitis, unspecified; E87.6 Hypokalemia; E86.0 Dehydration; I10 Essential (primary) hypertension; E78.5 Hyperlipidemia, unspecified; G20 Parkinson's disease; F39 Unspecified mood [affective] disorder; K64.4 Residual hemorrhoidal skin tags; K64.8 Other hemorrhoids
CPT/HCPCS: 36415; 74177; 80048; 80053; 80069; 81003; 81015; 82705; 83690; 83735; 85025; 87015; 87045; 87046; 87206; 87324; 87328; 87329; 87337; 87449; 87798; 87899; 88305; 93005; 96360; 96361; J0360; J1650; J2001; J2704

== ENCOUNTER 2019-10-24 06:53 | Day surgery (SDC) | payer MEDICARE, BC ==
[2019-10-23 13:53] VITALS: BMI 24.8
[~2019-10-24 06:53] MED LIST: Fluorouracil 100 MG, Enoxaparin Sodium 25 MG, EPINEPHrine 0.3 MG in Ophthalmic Irrigati... IRR SCH
[2019-10-24] MEDS ORDERED: Cyclopentolate 1% Opth Drop 2 ML BOT ONE (07:19)
[2019-10-24] MEDS ORDERED: Phenylephrine 2.5% Ophth Soln 5 ML BOT ONE (07:19)
[2019-10-24 07:38] LABS: Hemoglobin 14.4 g/dL (12.0-16.0)
--- NOTE | 2019-10-24 10:23 | OP ---
DATE OF PROCEDURE: 10/24/2019 PREOPERATIVE DIAGNOSIS: Macular hole, right eye. POSTOPERATIVE DIAGNOSIS: Macular hole, right eye. PROCEDURE PERFORMED: Pars plana vitrectomy and membrane peel, right eye. ANESTHESIA: Local with monitored anesthesia care. PROCEDURE IN DETAIL: The patient was identified in the preoperative holding area. Appropriate informed consent for the planned surgical procedure on the right eye had been obtained. The patient was transported to the operative suite. Appropriate cardiopulmonary monitoring was established. Local anesthesia was obtained using retrobulbar modified Van Lint lid block using 50:50 mixture of 4% lidocaine and 0.75% bupivacaine. The patient was prepped and draped in the usual sterile manner for ophthalmic surgery in the right eye. Lid speculum was placed in the right eye. A 27-gauge trocar was placed in the conjunctiva and sclera superotemporally, inferotemporally, and supranasally. Infusion line was placed inferotemporally. Light pipe and vitreous cutter were inserted into the eye. Core vitrectomy was performed. Posterior hyaloid face was elevated and peeled across the macula and into the retinal periphery. The vitreous was trimmed back 360 degrees. Indocyanine green dye was infused on the posterior pole x1, identifying the internal limiting membrane. This was elevated using a membrane scraper and peeled across the macula using end-gripping forceps. Complete air-fluid exchange was performed with 10 minutes being allowed for fluid to drain posteriorly. The periphery was inspected with indirect ophthalmoscopy. Prophylactic laser was placed behind the sclerotomies. 28% sulfur hexafluoride gas was infused into the eye. Trocars were removed. The eye was noted to retain pressure well. Retrobulbar Kenalog and subconjunctival Ancef were placed. Antibiotic ointment was placed. Eye was patched and shielded. The patient was taken to postoperative recovery unit in good condition, having suffered no immediate perioperative complications. The patient was instructed to keep patch and shield on, avoid lifting or bending, followup appointment with Dr. Raphael. Job ID: [id number]
[2019-10-24] MEDS ORDERED: Triamcinolone 40 MG/ML VIAL ONE (11:19)
[2019-10-24] MEDS ORDERED: PROPOFOL 200 MG/20 ML VIAL ONE (11:19)
[2019-10-24] MEDS ORDERED: Enoxaparin Sodium 30 MG/0.3 ML SYRINGE ONE (11:19)
[2019-10-24] MEDS ORDERED: Maxitrol 0.1% Opth Oint 3.5 GM TUBE ONE (11:19)
[2019-10-24] MEDS ORDERED: CEFAZOLIN 1 GM VIAL ONE (11:19)
[2019-10-24] MEDS ORDERED: Lidocaine 1% PF 5 ML VIAL ONE (11:19)
[2019-10-24] MEDS ORDERED: Lidocaine 4% PF 5 ML AMP ONE (11:19)
[2019-10-24] MEDS ORDERED: Indocyanine Green 25 MG/10 ML VIAL ONE (11:19)
[2019-10-24] MEDS ORDERED: Bupivacaine PF 0.75% SDV 10 ML ONE (11:19)
== END 2019-10-24 10:40 | disposition home or self-care (01) ==
LOC: SDC 06:53
PROVIDERS: ATTEND Ophthalmology Retina Specialist
PROC: 08T43ZZ Resection of Right Vitreous, Percutaneous Approach (ICD-10-PCS; principal; 2019-10-24)
PROC: 08NE3ZZ Release Right Retina, Percutaneous Approach (ICD-10-PCS; 2019-10-24)
DX: H35.341 Macular cyst, hole, or pseudohole, right eye (principal); G20 Parkinson's disease; Z79.84 Long term (current) use of oral hypoglycemic drugs; Z79.899 Other long term (current) drug therapy; Z88.2 Allergy status to sulfonamides
CPT/HCPCS: 67025; 85014; 85018; J0171; J0690; J1650; J2001; J2704; J3301; J3490; J9190